=== PATIENT | male | born 1950 | race Hispanic/Latino ===

== ENCOUNTER 2022-11-29 09:12 | Emergency (ER) | payer MEDICARE, OTHER ==
[~2022-11-29] VITALS: Ht 185.4 cm; Wt 68.9 kg
[2022-11-29] MEDS ORDERED: LIDOCAINE 1% W/EPINEPHRINE 20 ML VIAL INJ ONE (12:00)
[2022-11-29] MEDS ORDERED: LIDOCAINE 1% 10 ML MULTIDOSE VIAL IJ ONE (12:19)
== END 2022-11-29 13:30 | disposition home or self-care (01) ==
LOC: ER 09:16
DX: S01.81XA Laceration without foreign body of other part of head, initial encounter (principal); R51.9 Headache, unspecified; W01.0XXA Fall on same level from slipping, tripping and stumbling without subsequent striking against object, initial encounter; Y93.01 Activity, walking, marching and hiking; Y92.89 Other specified places as the place of occurrence of the external cause; Z79.01 Long term (current) use of anticoagulants; I48.91 Unspecified atrial fibrillation; I25.10 Atherosclerotic heart disease of native coronary artery without angina pectoris; Z95.810 Presence of automatic (implantable) cardiac defibrillator; F17.210 Nicotine dependence, cigarettes, uncomplicated
CPT/HCPCS: 70450; 72125; 99284

== ENCOUNTER → 2022-12-17 | Day surgery (SDC) | payer MEDICARE ==
[~2022-12-17] MED LIST: ACETAMINOPHEN 1000 MG/100 ML 100 ML IV ONE; ASPIRIN81 MG PO; ATORVASTATIN CA20 MG PO; BENADRYL25 M1 PO; BUPIVACAINE HCL 0.5% INJ 30 ML VIAL INJ ONE; CEPHALEXIN500 MG PO; ELIQUIS5 MG PO; FENTANYL CITRATE/PF 100MCG/2 ML INJ ONE; LASIX10 MG/ML PO; LIDOCAINE 2%/ EPINEPHRINE 20ML MDV ONE; LIDOCAINE HCL 1% LOCAL INJ 20 ML VIAL ONE; LISINOPRIL10 MG PO; METOPROLOL SUCC50 MG PO; METOPROLOL TAR100 MG PO; MIDAZOLAM HCL 2 MG/2 ML VIAL ONE; NEOSTIGMINE 1 MG/ML 10ML VIAL ONE; POTASSIUM CHLO20 ME1 PO; TIKOSYN125 MCG PO; VITAMIN D3 COM1 EACH PO; XANAX0.5 MG PO
[2022-12-17 12:38] LABS: BASOPHILS % 0.3 % (0.0-1.0); EOSINOPHILS # (AUTO) 0.2 (0.0-0.4); EOSINOPHILS % 1.7 % (0.0-6.0); HEMATOCRIT 45.7 % (38.2-49.6); HEMOGLOBIN 14.5 g/dL (14.0-18.0); LYMPHOCYTES # (AUTO) 2.5 (1.0-3.2); LYMPHOCYTES % 25.3 % (18.0-39.1); MEAN CORPUSCULAR HEMOGLOBIN 34.7 pg (28-32); MEAN CORPUSCULAR HGB CONC 31.7 g/dL (31-35); MEAN CORPUSCULAR VOLUME 109.3 fL (81-99); MONOCYTES # (AUTO) 0.7 (0.2-0.8); NEUTROPHILS # (AUTO) 6.4 (2.1-6.9); NEUTROPHILS % 64.3 % (38.7-80.0); PLATELET COUNT 276 x10e3/uL (140-360); RED BLOOD COUNT 4.18 x10e6/uL (4.3-5.7); RED CELL DISTRIBUTION WIDTH 13.4 % (11.7-14.4)
[2022-12-17 12:56] LABS: ALBUMIN 3.2 g/dL (3.5-5.0); ALBUMIN/GLOBULIN RATIO 0.8 (0.8-2.0); ANION GAP 15.6 mmol/L (8-16); CALCIUM 9.6 mg/dL (8.4-10.2); CREATININE, SERUM 2.21 mg/dL (0.72-1.25); POTASSIUM 4.6 mmol/L (3.5-5.1)
[2022-12-17 15:15] VITALS: BP 100/74
== END | disposition home or self-care (01) ==
LOC: OR 12:11
PROVIDERS: ATTEND Surgery
DX: S01.81XA Laceration without foreign body of other part of head, initial encounter (principal); I25.10 Atherosclerotic heart disease of native coronary artery without angina pectoris; I48.91 Unspecified atrial fibrillation; I10 Essential (primary) hypertension; W19.XXXA Unspecified fall, initial encounter; Z79.02 Long term (current) use of antithrombotics/antiplatelets; Z79.82 Long term (current) use of aspirin; Z79.899 Other long term (current) drug therapy
CPT/HCPCS: 17999; 36415; 71046; 80053; 85025; 93005; J0131; J2001; J2250; J2710; J3010

== ENCOUNTER 2025-01-08 13:34 | Observation (INO) | payer MEDICARE ==
[2025-01-08] VITALS (7 sets, daily range): BP systolic 99–141; BP diastolic 68–79; PULSE 59–74; RESP 16–20; TEMP 97.2–98.1; O2SAT 98–99
[~2025-01-08] VITALS: Ht 185.4 cm; Wt 68.9 kg
[~2025-01-08 13:34] MED LIST changes: -ACETAMINOPHEN 1000 MG/100 ML 100 ML IV ONE; -BUPIVACAINE HCL 0.5% INJ 30 ML VIAL INJ ONE; -FENTANYL CITRATE/PF 100MCG/2 ML INJ ONE; -LIDOCAINE 2%/ EPINEPHRINE 20ML MDV ONE; -LIDOCAINE HCL 1% LOCAL INJ 20 ML VIAL ONE; -MIDAZOLAM HCL 2 MG/2 ML VIAL ONE; -NEOSTIGMINE 1 MG/ML 10ML VIAL ONE
[2025-01-08 14:28] LABS: BASOPHILS % 0.3 % (0.0-1.0); EOSINOPHILS # (AUTO) 0.1 (0.0-0.4); EOSINOPHILS % 1.8 % (0.0-6.0); HEMATOCRIT 41.4 % (38.2-49.6); HEMOGLOBIN 13.3 g/dL (14.0-18.0); LYMPHOCYTES # (AUTO) 1.6 (1.0-3.2); LYMPHOCYTES % 22.4 % (18.0-39.1); MEAN CORPUSCULAR HEMOGLOBIN 33.4 pg (28-32); MEAN CORPUSCULAR HGB CONC 32.1 g/dL (31-35); MONOCYTES # (AUTO) 0.8 (0.2-0.8); MONOCYTES % 11.3 % (4.4-11.3); NEUTROPHILS # (AUTO) 4.5 (2.1-6.9); NEUTROPHILS % 63.8 % (38.7-80.0); PLATELET COUNT 156 x10e3/uL (140-360); RED BLOOD COUNT 3.98 x10e6/uL (4.3-5.7); RED CELL DISTRIBUTION WIDTH 14.4 % (11.7-14.4); WHITE BLOOD COUNT 7.06 x10e3/uL (4.8-10.8)
[2025-01-08 14:44] LABS: CALCIUM 8.9 mg/dL (8.4-10.2); CREATININE, SERUM 2.18 mg/dL (0.72-1.25)
[2025-01-08] MEDS ORDERED: ACETAMINOPHEN 325 MG TAB PO PRN (17:45)
[2025-01-08] MEDS ORDERED: POLYETHYLENE GLYCOL 3350 17 GM PACK PO PRN (17:45)
[2025-01-08] MEDS ORDERED: BISACODYL 10 MG SUPP PR PRN (17:45)
[2025-01-08] MEDS ORDERED: FUROSEMIDE40 MG PO (17:46)
[2025-01-08 18:11] LABS: INR 1.31
[2025-01-08 18:12] LABS: PARTIAL THROMBOPLASTIN TIME 35.8 seconds (23.8-35.5)
[2025-01-08] MEDS ORDERED: ZESTRIL40 MG PO (18:17)
[2025-01-08] MEDS ORDERED: LASIX80 MG PO (18:19)
[2025-01-08] MEDS ORDERED: TOPROL XL100 MG PO (18:35)
[2025-01-08] MEDS: ALPRAZOLAM 0.5 MG TAB PO SCH (21:02)
[2025-01-09] VITALS: BP 98/60; PULSE 71; RESP 18; TEMP 97.7; O2SAT 97
[2025-01-09 06:17] LABS: BASOPHILS % 0.5 % (0.0-1.0); EOSINOPHILS # (AUTO) 0.2 (0.0-0.4); EOSINOPHILS % 2.7 % (0.0-6.0); HEMATOCRIT 37.9 % (38.2-49.6); HEMOGLOBIN 12.4 g/dL (14.0-18.0); LYMPHOCYTES # (AUTO) 1.9 (1.0-3.2); LYMPHOCYTES % 29.4 % (18.0-39.1); MEAN CORPUSCULAR HGB CONC 32.7 g/dL (31-35); MEAN CORPUSCULAR VOLUME 103.8 fL (81-99); MONOCYTES # (AUTO) 0.7 (0.2-0.8); MONOCYTES % 10.8 % (4.4-11.3); NEUTROPHILS # (AUTO) 3.6 (2.1-6.9); NEUTROPHILS % 56.3 % (38.7-80.0); PLATELET COUNT 134 x10e3/uL (140-360); RED BLOOD COUNT 3.65 x10e6/uL (4.3-5.7); RED CELL DISTRIBUTION WIDTH 14.4 % (11.7-14.4); WHITE BLOOD COUNT 6.32 x10e3/uL (4.8-10.8)
[2025-01-09 06:40] LABS: ANION GAP 16.1 mmol/L (8-16); CALCIUM 8.5 mg/dL (8.4-10.2); CREATININE, SERUM 1.92 mg/dL (0.72-1.25); POTASSIUM 4.1 mmol/L (3.5-5.1)
[2025-01-09] MEDS ORDERED: DOFETILIDE 125 MCG PO SCH (09:00)
[2025-01-09] MEDS ORDERED: METOPROLOL TARTRATE 50 MG TAB PO SCH (09:00)
[2025-01-09] MEDS ORDERED: FUROSEMIDE 40 MG TAB PO SCH (09:00)
[2025-01-09] MEDS ORDERED: METOPROLOL SUCCINATE 50 MG TAB XL PO SCH ×2 (09:00)
[2025-01-09] MEDS: NICOTINE 21 MG/EA PATCH TOP SCH (09:00)
[2025-01-09] MEDS: POTASSIUM CHLORIDE 20 MEQ TAB CR PO SCH (09:02)
[2025-01-09] MEDS: METOPROLOL SUCCINATE 50 MG TAB XL PO SCH (09:02)
[2025-01-09] MEDS: LISINOPRIL 10 MG TAB PO SCH (09:03)
[2025-01-09] MEDS: DOFETILIDE 125 MCG PO SCH (09:03)
[2025-01-09] MEDS: FUROSEMIDE 40 MG TAB PO SCH (09:03)
[2025-01-09 09:12] VITALS: BP 112/75; PULSE 66; RESP 18; TEMP 97.4; O2SAT 97
[2025-01-09 10:21] VITALS: BP 112/75; PULSE 66; RESP 18; TEMP 97.4; O2SAT 97
[2025-01-09] MEDS: ATORVASTATIN 20 MG TAB PO SCH (10:30)
[2025-01-09 12:19] VITALS: BP 114/78; PULSE 74; RESP 18; TEMP 99.8; O2SAT 100
[2025-01-09 16:29] VITALS: BP 115/79; PULSE 84; RESP 18; TEMP 97.7; O2SAT 100
== END 2025-01-09 18:33 | disposition home or self-care (01) ==
LOC: ER 14:24 → ERHOLD 14:26 → MED/SURG3 16:54
PROVIDERS: ADMIT Internal Medicine; ATTEND Internal Medicine
DX: I83.892 Varicose veins of left lower extremity with other complications (principal); I13.0 Hypertensive heart and chronic kidney disease with heart failure and stage 1 through stage 4 chronic kidney disease, or unspecified chronic kidney disease; N18.32 Chronic kidney disease, stage 3b; I50.9 Heart failure, unspecified; Z95.810 Presence of automatic (implantable) cardiac defibrillator; I42.1 Obstructive hypertrophic cardiomyopathy; F17.210 Nicotine dependence, cigarettes, uncomplicated; I48.0 Paroxysmal atrial fibrillation; Z79.01 Long term (current) use of anticoagulants; F41.9 Anxiety disorder, unspecified
CPT/HCPCS: 36415 ×2; 80048 ×2; 85025 ×2; 85610; 85730; 94799; 99252; 99284; G0378 ×2

== ENCOUNTER → 2025-05-13 | Day surgery (SDC) | payer MEDICARE ==
[2025-05-03 11:25] LABS: BASOPHILS % 0.6 % (0.0-1.0); EOSINOPHILS % 2.1 % (0.0-6.0); LYMPHOCYTES % 19.9 % (18.0-39.1); MONOCYTES % 11.1 % (4.4-11.3); NEUTROPHILS % 66.0 % (38.7-80.0); RED CELL DISTRIBUTION WIDTH 19.6 % (11.7-14.4)
[2025-05-03 11:50] LABS: EST GLOMERULAR FILTRATION RATE 24.0 ML/MIN (>=60)
[~2025-05-13] MED LIST changes: +ACETAMINOPHEN 1000 MG/100 ML 100 ML IV ONE; +DEXAMETHASONE SOD PHOS INJ 4 MG/ML SDV ONE; +FENTANYL CITRATE/PF 100MCG/2 ML INJ ONE; +FUROSEMIDE40 MG PO; +LASIX80 MG PO; +LIDOCAINE HCL 2% LOCAL INJ 5 ML SDV VIAL INJ ONE; +NOREPINEPHRINE 8 MG/D5W 250 ML 250 ML ONE; +PHENYLEPHRINE HCL 1% 10 MG/ML VIAL ONE; +PROPOFOL IV EMULSION 50 ML IV ONE; +SODIUM CHLORIDE 0.9% 100 ML ONE; +TOPROL XL100 MG PO; +ZESTRIL40 MG PO
[2025-05-13] MEDS: LACTATED RINGER'S 1,000 ML ONE (07:57)
[2025-05-13 11:15] VITALS: TEMP 97.8
[2025-05-13 11:45] VITALS: BP 118/76; PULSE 70; RESP 16; O2SAT 97
== END | disposition home or self-care (01) ==
LOC: OR 06:50
PROVIDERS: ATTEND Surgery
DX: C44.319 Basal cell carcinoma of skin of other parts of face (principal); I11.0 Hypertensive heart disease with heart failure; I50.9 Heart failure, unspecified; I48.91 Unspecified atrial fibrillation; Z79.01 Long term (current) use of anticoagulants; F17.210 Nicotine dependence, cigarettes, uncomplicated; Z01.810 Encounter for preprocedural cardiovascular examination; Z01.812 Encounter for preprocedural laboratory examination; Z01.818 Encounter for other preprocedural examination; Z79.899 Other long term (current) drug therapy
CPT/HCPCS: 14040; 21016; 36415 ×2; 71046; 80053; 82948; 85025; 88305; 93005; J0131; J0690; J1100; J2003; J2371; J2704; J3010; J7050; J7121; 88304